=== PATIENT | female | born 1985 | race Caucasian/White ===

== ENCOUNTER 2021-04-12 22:18 | Inpatient (IN) ==
[2021-04-12 23:02] LABS: Bilirubin,Urine Negative (Negative); Blood,Urine Negative (Negative); Clarity,Urine Clear (Clear); Color,Urine Colorless (Yellow); Glucose,Urine (UA) Normal (Normal); Ketones,Urine Negative (Negative); Leukocyte Esterase,Urine Negative (Negative); Nitrite,Urine Negative (Negative); Protein,Urine Negative (Neg-Trace); Specific Gravity,Urine 1.008 (1.010-1.025); Urobilinogen,Urine Normal (Normal)
[2021-04-12 23:03] LABS: Basophils # 0.1 K/mcL (0.0-0.2); Eosinophils # 0.4 K/mcL (0.0-0.6); Eosinophils % 4.4 %; Hematocrit 42.3 % (35.3-44.9); Hemoglobin 14.9 g/dL (11.5-15.4); Immature Granulocytes % 0.2 % (0-4); Lymphocytes # 1.8 K/mcL (0.6-4.6); Lymphocytes % 18.2 %; Mean Corpuscular HGB Conc 35.2 g/dL (31.6-35.5); Mean Corpuscular Hemoglobin 31.6 pg (28.0-33.3); Mean Corpuscular Volume 89.8 fL (83.0-100.0); Mean Platelet Volume 9.7 fL (9.4-12.4); Monocytes # 0.6 K/mcL (0.0-1.3); Monocytes % 6.3 %; Neutrophils # 6.9 K/mcL (1.6-8.9); Platelet Count 278 K/mcL (140-400); Red Blood Count 4.71 M/mcL (3.82-4.97); Red Cell Distribution Width 12.7 % (11.5-14.5); Segmented Neutrophils % 69.9 %; White Blood Count 9.8 K/mcL (4.3-11.1)
[2021-04-12 23:13] LABS: Amphetamine Screen,Urine Negative ng/mL (Cutoff=1000); Barbiturate Screen,Urine Negative ng/mL (Cutoff=200); Benzodiazepines Screen,Urine Negative ng/mL (Cutoff=200); Cannabinoid Screen,Urine Negative ng/mL (Cutoff = 50); Cocaine Screen,Urine Negative ng/mL (Cutoff= 300); Opiate Screen,Urine Negative ng/mL (Cutoff=300); Phencyclidine Screen,Urine Negative ng/mL (Cutoff=25)
[2021-04-12 23:19] LABS: Acetaminophen < 10 mcg/mL (10-20); BUN/Creatinine Ratio 13 (6-26); Blood Urea Nitrogen 7 mg/dL (6-20); Carbon Dioxide 25 mEq/L (23-29); Chloride 102 mEq/L (98-107); Chol/HDL Ratio 3.2 (0-4.9); Cholesterol 159 mg/dL (< 200); Ethanol < 10 mg/dL (Less than 10); Glucose 103 mg/dL (70-105); HDL Cholesterol 49 mg/dL (40-59); LDL Cholesterol,Calculated 85 mg/dL (< 100); Osmolality,Calculated 280 (280-300); Potassium 3.1 mEq/L (3.5-5.1); Salicylate < 2.5 mg/dL (15.0-30.0); Sodium 136 mEq/L (136-145); Triglycerides 124 mg/dL (< 150); eGFR For African Americans > 60 (> 60); eGFR For Non-African Americans > 60 (> 60)
[2021-04-13 00:09] LABS: Estimated Average Glucose 82 mg/dl; Hemoglobin A1C 4.5 %
[2021-04-13] MEDS ORDERED: hydrOXYzine pamoate 25 MG CAPSULE PO ONE (00:58)
[2021-04-13 01:35] LABS: Influenza A PCR Negative (Negative); Influenza B PCR Negative (Negative); Resp. Syncytial Virus PCR Negative (Negative)
[2021-04-13 01:40] LABS: SARS-CoV-2 by PCR (In House) Negative (Negative)
[2021-04-13] MEDS ORDERED: Haloperidol Lactate 5 MG/ML VIAL IM PRN (06:40)
[2021-04-13] MEDS ORDERED: hydrOXYzine pamoate 25 MG CAPSULE PO PRN (06:40)
[2021-04-13] MEDS ORDERED: *HR* LORazepam 2 MG/ML VIAL IM PRN (06:40)
[2021-04-13] MEDS ORDERED: haloperidoL 5 MG TABLET PO PRN (06:40)
[2021-04-13] MEDS ORDERED: *HR* LORazepam 1 MG TABLET PO PRN (06:40)
[2021-04-13] MEDS ORDERED: *HR* LORazepam 0.5 MG TABLET PO SCH (09:00)
[2021-04-13] MEDS ORDERED: Mag Hydrox/Al Hydrox/Simeth 30 ML UDC PO PRN (10:49)
[2021-04-13] MEDS ORDERED: Nicotine 2 MG GUM BC PRN (10:49)
[2021-04-13] MEDS ORDERED: MOM Conc 10 ML UD.LIQ PO PRN (10:49)
[2021-04-13] MEDS: PARoxetine 20 MG TABLET PO SCH (10:53)
[2021-04-13] MEDS ORDERED: *HR* LORazepam 0.5 MG TABLET PO PRN (13:09)
[2021-04-13] MEDS ORDERED: Budesonide/Formoterol 80/4.5 1 PUFF INH IH PRN (13:16)
[2021-04-13] MEDS ORDERED: Patient Taking Own Medication 1 EACH PO SCH (13:23)
[2021-04-13] MEDS: Lactobacillus 1 EACH CAP.SPRINK PO SCH (15:36)
[2021-04-13] MEDS: NORGESTIMATE ETHINYL ESTRADIOL PO SCH (15:36)
[2021-04-13] MEDS: traZODone 50 MG TABLET PO PRN (21:34)
[2021-04-14] MEDS: PARoxetine 20 MG TABLET PO SCH (08:28)
[2021-04-14] MEDS: NORGESTIMATE ETHINYL ESTRADIOL PO SCH (08:28)
[2021-04-14] MEDS: Lactobacillus 1 EACH CAP.SPRINK PO SCH (08:28)
[2021-04-14] MEDS ORDERED: NORGESTIMATE ETHINYL ESTRADIOL PO SCH (09:00)
[2021-04-14] MEDS: Acetaminophen/Aspirin/Caffeine TABLET PO PRN ×2 (11:23→17:45)
[2021-04-14] MEDS: traZODone 50 MG TABLET PO PRN (21:06)
[2021-04-15] MEDS: Lactobacillus 1 EACH CAP.SPRINK PO SCH (08:33)
[2021-04-15] MEDS: PARoxetine 20 MG TABLET PO SCH (08:33)
[2021-04-15 09:44] VITALS: BP 136/95; PULSE 117; TEMP 99; O2SAT 96
[2021-04-15] MEDS: NORGESTIMATE ETHINYL ESTRADIOL PO SCH (11:14)
== END 2021-04-15 12:00 | disposition home or self-care (01) | DRG 885 ==
LOC: EMEROOARM 22:18 → 1ANU 04-13 10:10
PROVIDERS: ADMIT Psychiatry & Neurology Psychiatry; ATTEND Psychiatry & Neurology Psychiatry